=== PATIENT | female | born 1945 | race Two or more races ===

== ENCOUNTER → 2023-09-21 | Day surgery (SDC) | payer OTHER ==
[2023-09-20 14:27] LABS: HEMATOCRIT 39.1 % (36.0-45.00); HEMOGLOBIN 13.2 g/dL (12.0-15.00); MEAN CELL VOLUME 83.4 fL (80.00-100.00); MEAN CORPUSCULAR HEMOGLOBIN 28.1 pg (27.00-32.0); MEAN CORPUSCULAR HGB CONC 33.7 g/dl (32.0-36.0); PLATELET COUNT 213 K/uL (150-450); RED BLOOD COUNT 4.69 M/uL (4.00-6.00)
[2023-09-20 14:27] LABS: PH,URINE 5.5 (5.0-8.0); URINE APPEARANCE Clear; URINE BILIRRUBIN Negative (NEGATIVE); URINE BLOOD Small; URINE COLOR Yellow; URINE GLUCOSE Negative (NEGATIVE); URINE LEUKOCYTE Negative; URINE NITRATE Negative; URINE PROTEIN Negative (NEGATIVE); URINE UROBILINOGEN 0.2 E.U./dl
[2023-09-20 14:31] LABS: URINE BACTERIA 492.3 uL (0.0-1933); URINE EPITHELIAL CELLS 1.8 uL (0.0-38.8); URINE RBC 5.7 uL (0.0-20.8)
[2023-09-20 14:43] LABS: URINE WBC 1.5 uL (0.0-23.2)
[2023-09-20 14:57] LABS: ALBUMIN 3.9 gm/dL (3.4-5.0); BILIRUBIN TOTAL 0.4 mg/dL (0.3-1.2); CALCIUM 9.8 mg/dL (8.5-10.1); CREATININE SERUM 0.53 mg/dL (0.55-1.02); GFR 111.86; GLOBULINA 3.1 G/DL (2.4-3.5); POTASSIUM 4.66 mEq/L (3.5-5.1)
[2023-09-20 15:08] LABS: INR 1.06; PARTIAL THROMBOPLASTIN TIME 29.7 SECONDS (22.0-34.0); PROTHROMBIN TIME 11.1 SECONDS (9.0-11.5)
[~2023-09-21] MED LIST: ANASTROZOLE1 MG PO; CEFAZOLIN SODIUM 1,000 MG VIAL IV ONE; CEFAZOLIN SODIUM 1,000 MG VIAL ONE; CHLORHEXIDINE GLUCONATE 120 ML BOTTLE TOP ONE; COZAAR25 MG PO; METFORMIN HCL500 M3 PO; ONDANSETRON HCL 2 MG/ML VIAL ONE; ROSUVASTATIN CAL5 MG PO
== END | disposition home or self-care (01) ==
LOC: ADM 09-20 15:00 → CIR.AMB 05:58
PROVIDERS: ATTEND Surgery
DX: C50.411 Malignant neoplasm of upper-outer quadrant of right female breast (principal); C77.3 Secondary and unspecified malignant neoplasm of axilla and upper limb lymph nodes; Z20.822 Contact with and (suspected) exposure to COVID-19; E04.1 Nontoxic single thyroid nodule; I10 Essential (primary) hypertension; E11.9 Type 2 diabetes mellitus without complications
CPT/HCPCS: 19301; 38525; 19281; L8699